=== PATIENT | female | born 1950 | race Caucasian/White ===

== ENCOUNTER 2016-12-05 09:38 | Emergency (ER) | payer OTHER ==
[~2016-12-05] VITALS: Ht 149.9 cm; Wt 64.6 kg
[2016-12-05 09:40] VITALS: TEMP 36.7; Ht 149.9 cm; Wt 64.6 kg
[2016-12-05] MEDS ORDERED: ONDANSETRON INJ 2 MG/ML 2 ML VIAL IV STA (10:04)
[2016-12-05] MEDS ORDERED: MECLIZINE HCL 25 MG TAB PO STA (10:04)
[2016-12-05] MEDS ORDERED: SODIUM CHLORIDE 0.9% 1000ML 1,000 ML IV STA (10:05)
[2016-12-05] MEDS ORDERED: LEVO88TA PO (10:09)
[2016-12-05] MEDS ORDERED: GABA-112 PO (10:09)
[2016-12-05] MEDS ORDERED: DOXY100C76 PO (10:09)
[2016-12-05] MEDS ORDERED: CALC500C70 PO (10:09)
[2016-12-05] MEDS ORDERED: ASPI81TA28 PO (10:09)
[2016-12-05] MEDS ORDERED: NIAC500T11 PO (10:09)
[2016-12-05 10:10] LABS: BASO % 0.5 %; BASO ABS # 0.03 K/uL (0-0.2); COMPLETE YES; EOS % 2.9 %; IG% 0.5 %; LYMPH % 38.3 %; MEAN CELL VOLUME 96.2 fL (80-100); MEAN CORPUSCULAR HEMOGLOBIN 32.9 pg (25-34); MEAN CORPUSCULAR HGB CONC 34.3 g/dl (32-36); MEAN PLATELET VOLUME 8.9 fL (7.4-10.4); MONO % 8.6 %; NEUT % 49.2 %; PLATELET COUNT 373 K/uL (130-400); RED BLOOD COUNT 4.16 M/uL (4.2-5.4); WHITE BLOOD COUNT 5.49 K/uL (4.8-10.8)
[2016-12-05 10:20] LABS: PARTIAL THROMBOPLASTIN RATIO 1.4; PROTHROMBIN TIME (PATIENT) 10.7 SECONDS (9.0-12.0)
[2016-12-05 10:31] LABS: BUN/CREATININE RATIO 23.7 (10-20); CALCIUM 9.4 mg/dl (8.5-10.1); CREATININE 0.86 mg/dl (0.60-1.20); POTASSIUM 3.8 mmol/L (3.5-5.1)
[2016-12-05 10:40] LABS: CKMB/CK RATIO 3.3 (0-3.0); THYROID STIMULATING HORMONE 5.94 uIu/ml (0.300-4.500)
[2016-12-05 12:02] LABS: URINE APPEARANCE CLEAR (CLEAR); URINE BILIRUBIN NEG (NEG); URINE COLOR DK YELLOW; URINE EPITHELIAL CELL AUTO 20-30 /lpf (0-5); URINE NITRITE NEG (NEG); URINE PH 5.5 (4.5-7.5); URINE SPECIFIC GRAVITY 1.024 (1.000-1.030); UROBILINOGEN NEG (NEG); ZZUR CULT IF INDIC CLEAN CATCH NO
[2016-12-05 12:06] LABS: MANUAL MICROSCOPIC REQUIRED? NO; REVIEW REQ? NO
[2016-12-05] MEDS ORDERED: OPTIRAY 320 IV PRN (13:30)
--- NOTE | 2016-12-05 13:58 | DIAGNOSTIC IMAGING REPORT ---
CT ANGIOGRAM OF THE CHEST CLINICAL HISTORY: Shortness of breath. Elevated d-dimer. COMPARISON STUDY: No previous studies for comparison. TECHNIQUE: Following the IV administration of 104 mL of Optiray-320, CT angiogram of the thorax was performed from the thoracic inlet to the lung bases utilizing the pulmonary embolus protocol. Images are reviewed in the axial, sagittal, and coronal planes. IV contrast was administered without complication. MIP imaging was performed. CT DOSE: 206.50 mGy.cm FINDINGS: There is an enlarged subcarinal lymph node measuring 18 mm. There is no pathologic hilar or axillary lymphadenopathy. There was no evidence of thoracic aortic dilatation. There were no pulmonary artery filling defects to indicate acute pulmonary embolism. No pleural effusions are visualized. There are dependent atelectatic changes. There is lower lobe bronchial wall thickening. There is no lobar consolidation. IMPRESSION: 1. No evidence of acute pulmonary embolism 2. No evidence of focal pulmonary consolidation 3. Mild lower lobe bronchial wall thickening 4. Enlarged subcarinal lymph node Electronically signed by: Steven Livingston M.D. 12/05/2016 1:57 PM Dictated Date/Time: 12/05/2016 1:52 PM
[2016-12-05 14:42] VITALS: BP 158/85; PULSE 90; O2SAT 98
--- NOTE | 2016-12-05 15:26 | EMERGENCY ROOM VISIT NOTE ---
History Report prepared by Jaden: Issa Spence Under the Supervision of: Dr. Radha Gagnon M.D. First contact with patient: 09:59 Chief Complaint: ABNORMAL LABS Stated Complaint: ELEVATED D-DIMER BLOOD TEST History of Present Illness The patient is a 66 year old female who presents to the Emergency Room for evaluation of a positive d-dimer test occurring a few days ago. She had a d- dimer test with her PCP earlier this week and was called with her results just prior to arrival. She had the test due to increasing shortness of breath and fatigue. The patient states that she was in [place] when her symptoms began. Her symptoms began with fatigue, and eventually developed into shortness of breath. She notes that she got bit by a bug while there, and has a large bug bite on her back. The patient notes that she vomited just prior to arrival. She denies any chest pain, jaw pain, or arm pain. Source of History: patient Onset: A few days ago Quality: other (positive d-dimer ) Timing: other (episode) Associated Symptoms: + SOB, + vomiting, + fatigue, No chest pain Note: The patient denies any jaw pain, or arm pain. Review of Systems See HPI for pertinent positives & negatives. A total of 10 systems reviewed and were otherwise negative. Past Medical & Surgical Medical Problems: (1) HTN (hypertension) Surgical Problems: (1) H/O thyroidectomy Family History No pertinent family history stated. Social History Smoking Status: Never Smoker Housing Status: lives with family Occupation Status: retired Current/Historical Medications Scheduled Aspirin (Aspirin Ec), 81 MG PO DAILY Calcium/Vitamin D (Os-Cam 500 Plus D), 1 TAB PO DAILY Doxycycline Monohydrate (Monodox), 100 MG PO BID Gabapentin (Neurontin), 100 MG PO BID Levothyroxine Sodium (Synthroid), 88 MCG PO DAILY Niacin (Niacin), 500 MG PO DAILY Allergies Coded Allergies: Moxifloxacin (Unverified Adverse Reaction, Intermediate, HIVES, 12/05/16) Penicillins (Unverified Adverse Reaction, Intermediate, RASH, 12/05/16) Physical Exam Vital Signs Date Time Temp Pulse Resp B/P (MAP) Pulse Ox O2 Delivery O2 Flow Rate FiO2 12/05/16 14:42 90 20 158/85 98 Room Air 12/05/16 13:31 83 20 166/90 98 Room Air 12/05/16 13:09 86 12/05/16 11:40 77 20 174/83 99 Room Air 12/05/16 09:54 74 12/05/16 09:40 36.7 83 18 157/79 96 Room Air Physical Exam Vital signs reviewed. General: Somewhat ill-appearing female, in no significant distress. HEENT: No scleral icterus, PERRLA, neck supple. Atraumatic. Cardiovascular: Regular rate and rhythm, no extra sounds. Pulmonary: Crackles at the bases bilaterally, normal work of breathing. Abdomen: Soft, nontender, nondistended, positive bowel sounds. Musculoskeletal: Atraumatic, no peripheral edema. Neurologic: Patient awake alert and oriented x 3, full strength in all 4 extremities. Cranial nerves 2 through 12 grossly intact. Skin: Warm, dry, no rash Medical Decision & Procedures ER Provider Diagnostic Interpretation: CT results as stated below per my review and radiologist interpretation: CT ANGIOGRAM OF THE CHEST FINDINGS: There is an enlarged subcarinal lymph node measuring 18 mm. There is no pathologic hilar or axillary lymphadenopathy. There was no evidence of thoracic aortic dilatation. There were no pulmonary artery filling defects to indicate acute pulmonary embolism. No pleural effusions are visualized. There are dependent atelectatic changes. There is lower lobe bronchial wall thickening. There is no lobar consolidation. IMPRESSION: 1. No evidence of acute pulmonary embolism 2. No evidence of focal pulmonary consolidation 3. Mild lower lobe bronchial wall thickening 4. Enlarged subcarinal lymph node Electronically signed by: Steven Livingston M.D. Laboratory Results 12/05/16 09:58 Red Blood Count 4.16, Mean Corpuscular Volume 96.2, Mean Corpuscular Hemoglobin 32.9, Mean Corpuscular Hemoglobin Concent 34.3, Mean Platelet Volume 8.9, Neutrophils (%) (Auto) 49.2, Lymphocytes (%) (Auto) 38.3, Monocytes (%) (Auto) 8.6, Eosinophils (%) (Auto) 2.9, Basophils (%) (Auto) 0.5, Neutrophils # (Auto) 2.70, Lymphocytes # (Auto) 2.10, Monocytes # (Auto) 0.47, Eosinophils # (Auto) 0.16, Basophils # (Auto) 0.03 12/05/16 09:58 Test 12/05/16 09:58 12/05/16 10:23 12/05/16 11:30 White Blood Count 5.49 K/uL (4.8-10.8) Red Blood Count 4.16 M/uL (4.2-5.4) Hemoglobin 13.7 g/dL (12.0-16.0) Hematocrit 40.0 % (37-47) Mean Corpuscular Volume 96.2 fL (80-100) Mean Corpuscular Hemoglobin 32.9 pg (25-34) Mean Corpuscular Hemoglobin Concent 34.3 g/dl (32-36) Platelet Count 373 K/uL (130-400) Mean Platelet Volume 8.9 fL (7.4-10.4) Neutrophils (%) (Auto) 49.2 % Lymphocytes (%) (Auto) 38.3 % Monocytes (%) (Auto) 8.6 % Eosinophils (%) (Auto) 2.9 % Basophils (%) (Auto) 0.5 % Neutrophils # (Auto) 2.70 K/uL (1.4-6.5) Lymphocytes # (Auto) 2.10 K/uL (1.2-3.4) Monocytes # (Auto) 0.47 K/uL (0.11-0.59) Eosinophils # (Auto) 0.16 K/uL (0-0.5) Basophils # (Auto) 0.03 K/uL (0-0.2) RDW Standard Deviation 43.2 fL (36.4-46.3) RDW Coefficient of Variation 12.3 % (11.5-14.5) Immature Granulocyte % (Auto) 0.5 % Immature Granulocyte # (Auto) 0.03 K/uL (0.00-0.02) Prothrombin Time 10.7 SECONDS (9.0-12.0) Prothromb Time International Ratio 1.0 (0.9-1.1) Activated Partial Thromboplast Time 35.4 SECONDS (21.0-31.0) Partial Thromboplastin Ratio 1.4 Anion Gap 6.0 mmol/L (3-11) Est Creatinine Clear Calc Drug Dose 51.2 ml/min Estimated GFR () 80.5 Estimated GFR (Non- 69.4 BUN/Creatinine Ratio 23.7 (10-20) Calcium Level 9.4 mg/dl (8.5-10.1) Total Bilirubin 0.3 mg/dl (0.2-1) Direct Bilirubin 0.1 mg/dl (0-0.2) Aspartate Amino Transf (AST/SGOT) 26 U/L (15-37) Alanine Aminotransferase (ALT/SGPT) 78 U/L (12-78) Alkaline Phosphatase 301 U/L (45-117) Total Creatine Kinase 24 U/L (26-192) Creatine Kinase MB 0.8 ng/ml (0.5-3.6) Creatine Kinase MB Ratio 3.3 (0-3.0) Total Protein 7.1 gm/dl (6.4-8.2) Albumin 2.9 gm/dl (3.4-5.0) Thyroid Stimulating Hormone (TSH) 5.940 uIu/ml (0.300-4.500) Free Thyroxine 1.34 ng/dl (0.80-1.60) Free Triiodothyronine 1.92 pg/ml (2.30-4.20) Bedside Troponin I < 0.030 ng/ml (0-0.045) Urine Color DK YELLOW Urine Appearance CLEAR (CLEAR) Urine pH 5.5 (4.5-7.5) Urine Specific [place] 1.024 (1.000-1.030) Urine Protein NEG (NEG) Urine Glucose (UA) NEG (NEG) Urine Ketones 1+ (NEG) Urine Occult Blood NEG (NEG) Urine Nitrite NEG (NEG) Urine Bilirubin NEG (NEG) Urine Urobilinogen NEG (NEG) Urine Leukocyte Esterase SMALL (NEG) Urine WBC (Auto) 5-10 /hpf (0-5) Urine RBC (Auto) 0-4 /hpf (0-4) Urine Hyaline Casts (Auto) 1-5 /lpf (0-5) Urine Epithelial Cells (Auto) 20-30 /lpf (0-5) Urine Bacteria (Auto) NEG (NEG) Laboratory results per my review. Medications Administered Medications (Trade) Dose Ordered Sig/Kal Route Start Time Stop Time Status Last Admin Dose Admin Meclizine HCl (Antivert Tab) 25 mg NOW STAT PO 12/05/16 10:04 12/05/16 10:05 DC 12/05/16 10:04 25 MG Ondansetron HCl (Zofran Inj) 4 mg NOW STAT IV 12/05/16 10:04 12/05/16 10:05 DC 12/05/16 10:04 4 MG Sodium Chloride 1,000 ml @ 125 mls/hr Q8H STAT IV 12/05/16 10:05 12/05/16 15:59 DC 12/05/16 10:05 125 MLS/HR ECG Indication: SOB/dyspnea Rate (beats per minute): 76 Rhythm: normal sinus Findings: no acute ischemic change, no ectopy ED Course 1000: Past medical records reviewed. The patient was evaluated in room B3B. A complete history and physical examination was performed. 1004: Ordered Zofran Inj 4 mg IV, Antivert Tab 25 mg PO, Sodium Chloride 1000 ml @ 125 mls/hr IV. 1515: Upon reevaluation, the patient appeared to have improvement of her symptoms. I discussed findings with her. She verbalized agreement of the treatment plan. The patient was discharged home. Medical Decision Differential diagnosis: Etiologies such as metabolic, infection, hypo/hyperglycemia, electrolyte abnormalities, cardiac sources, intracerebral event, toxicologic, neurologic, as well as others were entertained. Blood Pressure Screening: Patient was found to have an elevated blood pressure and was referred to their primary doctor for recheck and further treatment. Medication Reconciliation: I attest that I have personally reviewed the patient' s current medication list. This patient was evaluated and appeared to be in no significant distress. Physical examination is fairly unrevealing. Laboratory work reveals no significant abnormality. Records were obtained from the patient's PCP with an elevated d-dimer. EKG reveals a normal sinus rhythm without ectopy or ischemia. CT scan of the chest was performed and reveals some bronchial thickening with an enlarged lymph node. Patient is currently taking doxycycline 100 mg twice a day for the last 3 days and has a 21 day course as she has recently had a right lower back erythema. She is being treated for a possibility of Lyme with titers pending. Patient was informed of the findings. She was encouraged to follow-up with her PCP this week for reevaluation. She will return to the ER for worsening of symptoms or any medical concerns. Impression Primary Impression: Bronchitis Additional Impression: SOB (shortness of breath) on exertion Scribe Attestation The scribe's documentation has been prepared under my direction and personally reviewed by me in its entirety. I confirm that the note above accurately reflects all work, treatment, procedures, and medical decision making performed by me. Departure Information Dispostion Home / Self-Care Referrals Ross Cunningham D.O. (PCP) Forms HOME CARE DOCUMENTATION FORM, IMPORTANT VISIT INFORMATION, WORK / SCHOOL INSTRUCTIONS Patient Instructions My [facility] Additional Instructions Diagnosis: Shortness of breath on exertion, bronchitis Continue your doxycycline as prescribed. Follow-up with Dr. Moore in 2 days as scheduled by case management for your reevaluation. Watch the erythematous area on your right lower back closely. If the area widens or becomes painful, seek reevaluation. If you develop a fever or worsening of symptoms return to the ER. There is a larger lymph node in the chest that should be monitored. Problem Qualifiers
== END 2016-12-05 15:10 | disposition home or self-care (01) ==
LOC: C.EDB 09:39
DX: J40 Bronchitis, not specified as acute or chronic (principal); I10 Essential (primary) hypertension; E89.0 Postprocedural hypothyroidism; Z79.82 Long term (current) use of aspirin; Z79.899 Other long term (current) drug therapy